=== PATIENT | female | born 1995 | race Hispanic/Latino ===

== ENCOUNTER 2019-10-05 12:40 | Emergency (ER) | payer MEDICAID ==
[2019-10-05] MEDS ORDERED: Acetaminophen 325 MG TAB ONE (13:50)
[2019-10-05 14:04] LABS: #Basophils 0.1 thou/uL (0.0-0.2); #Eosinphils 0.1 thou/uL (0.0-0.7); #Lymphocytes 2.1 thou/uL (1.20-3.40); #Monocytes 0.4 thou/uL (0.11-0.59); #Neutrophils 4.6 thou/uL (1.40-6.50); %Basophils 0.7 % (0.0-1.0); %Lymphocytes 28.9 % (21.0-51.0); %Monocytes 5.1 % (0.0-10.0); %Neutrophils 63.3 % (42.0-75.0); Hemoglobin 12.2 g/dL (12.0-16.0); Mean Corpuscular Hemoglobin 25.8 pg (27.0-31.0); Mean Platelet Volume 8.7 fL (7.4-10.4); Platelet Count 279 thou/uL (130-400); RBC Distribution Width 17.6 % (11.5-14.5); Red Blood Cell (RBC) Count 4.73 mill/uL (4.20-5.40); White Blood Cell (WBC) Count 7.3 thou/uL (4.8-10.8)
[2019-10-05 14:28] LABS: ALT (SGPT) 9 U/L (8-55); AST (SGOT) 15 U/L (5-34); Albumin 4.3 g/dL (3.5-5.0); Alkaline Phosphatase 48 U/L (40-110); Anion Gap 13 mmol/L (10-20); BUN (Urea Nitrogen) 5 mg/dL (7.0-18.7); Bilirubin, Total 0.6 mg/dL (0.2-1.2); Calc. Creatinine Clearance 0 mL/min (70-130); Calcium 9.4 mg/dL (7.8-10.44); Carbon Dioxide 22 mmol/L (22-29); Chloride 106 mmol/L (98-107); Estimated GFR-MDRD Greater than 90; Globulin 3.5 g/dL (2.4-3.5); Glucose 84 mg/dL (70-105); Potassium 3.5 mmol/L (3.5-5.1); Protein, Total 7.8 g/dL (6.0-8.3); Sodium 137 mmol/L (136-145)
[2019-10-05 15:12] LABS: Bilirubin Negative (Negative); Blood, Urine Trace (Negative); Clarity Turbid (Clear); Glucose, Urine (Dipstick) Normal (Negative); Ketone, Urine Negative (Negative); Leukocyte 500 Leu/uL (Negative); Mucous/LPF 1+ LPF (<2+); Nitrite Negative (Negative); Protein, Urine (Dipstick) 20 mg/dL (Neg-Trace); Specific Gravity, Urine 1.021 (1.002-1.036); Urobilinogen Normal mg/dL (Less than 2); pH, Urine 6.5 (5.0-9.0)
[2019-10-05 15:20] LABS: Squamous Epithelial 21-50 HPF (0-3)
[2019-10-05 15:21] LABS: Bacteria/HPF 3+ HPF (None Seen)
--- NOTE | 2019-10-05 15:34 | ULT ---
OB ULTRASOUND: Date: 10-05-2019 Provided Clinical History: Pain FINDINGS: A single live intrauterine gestation is documented in transverse, head to material right presentation , with cardiac activity of 152 beats/minute documented. The placenta is posteriorly located without e vidence of previa. Amniotic fluid index is not quantified but appears qualitatively normal. Estimated gestation age based on today's examination is 14 weeks 5 days. biometry: BPD 2.9 cm 15 weeks 1 day HC 10.6 cm 15 weeks 0 day AC 8.5 cm 14 weeks 6 days FL 1.5 cm 14 weeks 3 days IMPRESSION: Single live intrauterine gestation, 14 weeks 5 days by ultrasound. POS: WHIT
== END 2019-10-05 15:50 | disposition home or self-care (01) ==
LOC: ERS 12:40
DX: O9A.212 Injury, poisoning and certain other consequences of external causes complicating pregnancy, second trimester (principal); S39.012A Strain of muscle, fascia and tendon of lower back, initial encounter; O23.42 Unspecified infection of urinary tract in pregnancy, second trimester; O99.342 Other mental disorders complicating pregnancy, second trimester; F41.9 Anxiety disorder, unspecified; F31.9 Bipolar disorder, unspecified; F20.9 Schizophrenia, unspecified; Z3A.16 16 weeks gestation of pregnancy; W50.1XXA Accidental kick by another person, initial encounter
CPT/HCPCS: 36415; 76815; 80053; 81003; 81015; 85025; 86900; 86901; 87086